=== PATIENT | male | born 1980 | race African-American/Black ===

== ENCOUNTER 2017-08-09 11:43 | Inpatient (IN) ==
[2017-08-09] MEDS ORDERED: ALBUTEROL 2.5 MG/3 ML NEB RESP TX PRN (17:54)
[2017-08-09] MEDS ORDERED: ONDANSETRON 4 MG/2 ML VIAL IV PRN (17:54)
[2017-08-09] MEDS ORDERED: GLUCAGON 1 MG VIAL IM PRN (17:54)
[2017-08-09] MEDS ORDERED: MORPHINE 2 MG/1 ML SYRINGE IV PRN (17:54)
[2017-08-09] MEDS: POTASSIUM CHLORIDE 20 MEQ TABLET PO SCH ×2 (18:40→21:44)
[2017-08-09] MEDS: LEVOFLOXACIN INJ 750 MG in PREMIX 1 EACH IV SCH (18:40)
[2017-08-09] MEDS: SODIUM CHLOR 0.9% KCL 40 MEQ 40 MEQ/1,000 ML BAG IV SCH (18:42)
[2017-08-09] MEDS: ALBUTEROL 2.5 MG/3 ML NEB RESP TX SCH ×2 (19:47→23:52)
[2017-08-09] MEDS: INSULIN GLARGINE 100 UNIT/ML SUBCUT SCH (21:44)
[2017-08-09] MEDS: guaiFENesin/DM ER 600-30 MG TABLET PO SCH (21:44)
[2017-08-09] MEDS: PIPERACILLIN/TAZOBACTAM 3,375 MG in SODIUM CHLORIDE 0.9% 100 ML IV SCH (21:44)
[2017-08-09] MEDS: INSULIN REGULAR 100 UNIT/ML SUBCUT SCH (21:45)
[2017-08-10] MEDS: VANCOMYCIN INJ 1,000 MG in SODIUM CHLORIDE 0.9% 250 ML IV SCH ×3 (01:24→23:54)
[2017-08-10] MEDS: POTASSIUM CHLORIDE 20 MEQ TABLET PO SCH (01:25)
[2017-08-10] MEDS: PIPERACILLIN/TAZOBACTAM 3,375 MG in SODIUM CHLORIDE 0.9% 100 ML IV SCH ×3 (04:16→20:53)
[2017-08-10] MEDS: SODIUM CHLOR 0.9% KCL 40 MEQ 40 MEQ/1,000 ML BAG IV SCH ×3 (04:17→20:52)
[2017-08-10 06:02] LABS: Basophils % 0.2 % (0.0-0.8); Eosinophils # 0.1 10*3/uL (0.0-0.87); Eosinophils % 0.7 % (0.00-10.9); Hemoglobin 9.6 GM/DL (14.0-18.0); Immature Granulocytes % 6.4 %; Immature Granulocytes Absolute 0.82 #; Lymphocytes # 1.4 10*3/uL (1.4-4.0); Lymphocytes % 10.9 % (21.2-54.2); Mean Corpuscular HGB Conc 35.6 GM/DL (32-36); Mean Corpuscular Hemoglobin 22 PG (27-34); Mean Corpuscular Volume 62.8 FL (87-102); Mean Platelet Volume 9.2 FL (9.6-12.0); Monocytes # 0.7 10*3/uL (0.11-0.8); Monocytes % 5.6 % (1.7-12.7); NRBC # 0.03 10*3/uL; Neutrophils # 9.7 10*3/uL (1.4-7.4); Neutrophils % 76.2 % (38.7-73.9); Platelet Count 288 T/CUMM (130-400); Red Cell Distribution Width 14.1 % (9.3-17.3); White Blood Count 12.8 T/CUMM (4-12)
[2017-08-10 06:26] LABS: Band Neutrophils 4 % (0-10); Eosinophils 1 % (0-10); Lymphocytes 10 % (20-55); Platelet Estimate Adequate; Segmented Neutrophils 80 % (50-85); Total Cells Counted 100
[2017-08-10 06:27] LABS: Giant Platelets Few; Hypochromasia 1+
[2017-08-10 06:28] LABS: Target Cells Few
[2017-08-10 06:32] LABS: Albumin 1.3 G/DL (3.4-5.0); Bilirubin,Total 1.3 MG/DL (0.2-1.0); Calcium 7.3 MG/DL (8.5-10.1); Osmolality,Calculated 280.8 MOS/KG (273-304); Potassium 3.2 MMOL/L (3.5-5.1)
[2017-08-10] MEDS: DEXTROSE 50% 25 GM/50 ML VIAL IV PRN (06:54)
[2017-08-10] MEDS: ALBUTEROL 2.5 MG/3 ML NEB RESP TX SCH ×3 (06:55→19:10)
[2017-08-10] MEDS ORDERED: POTASSIUM CHLORIDE 20 MEQ TABLET PO PRN (10:40)
[2017-08-10] MEDS: guaiFENesin/DM ER 600-30 MG TABLET PO SCH ×2 (12:24→20:52)
[2017-08-10] MEDS: INSULIN REGULAR 100 UNIT/ML SUBCUT SCH ×3 (12:24→20:53)
[2017-08-10] MEDS: PANTOPRAZOLE 40 MG TABLET PO SCH (12:24)
[2017-08-10 14:19] LABS: Apearance,Urine CLEAR (Clear); Bilirubin,Urine Negative (Negative); Blood, Urine Large mg/dL (Negative); Glucose,Urine (UA) Negative (Negative); Ketones,Urine 5 mg/dL (Negative); Mucus,Urine Occasional /LPF (Occasional); Nitrite,Urine Negative (Negative); Protein,Urine Negative; RBC,Urine 2 /HPF (0-4); Squamous Epithelial Cell,Urine Occasional /HPF (0-10); Urine Color Yellow (Yellow); WBC,Urine 3 /HPF (0-6)
[2017-08-10 15:42] LABS: HIV Antigen/Antibody Result Nonreactive (Nonreactive)
[2017-08-10] MEDS: LEVOFLOXACIN INJ 750 MG in PREMIX 1 EACH IV SCH ×2 (16:43→18:26)
[2017-08-10] MEDS: INSULIN GLARGINE 100 UNIT/ML SUBCUT SCH (20:55)
[2017-08-11] MEDS: ALBUTEROL 2.5 MG/3 ML NEB RESP TX SCH ×4 (01:04→18:56)
[2017-08-11] MEDS: PIPERACILLIN/TAZOBACTAM 3,375 MG in SODIUM CHLORIDE 0.9% 100 ML IV SCH ×3 (04:04→22:56)
[2017-08-11] MEDS: SODIUM CHLOR 0.9% KCL 40 MEQ 40 MEQ/1,000 ML BAG IV SCH (04:07)
[2017-08-11] MEDS: PANTOPRAZOLE 40 MG TABLET PO SCH ×2 (07:42→08:15)
[2017-08-11] MEDS: guaiFENesin/DM ER 600-30 MG TABLET PO SCH ×3 (07:42→21:31)
[2017-08-11] MEDS: INSULIN REGULAR 100 UNIT/ML SUBCUT SCH ×4 (07:43→21:30)
[2017-08-11 08:33] LABS: Basophils % 0.1 % (0.0-0.8); Eosinophils % 0.3 % (0.00-10.9); Hematocrit 26.3 VOL% (42.0-52.0); Immature Granulocytes % 5.7 %; Immature Granulocytes Absolute 0.71 #; Lymphocytes # 1.2 10*3/uL (1.4-4.0); Lymphocytes % 9.7 % (21.2-54.2); Mean Corpuscular HGB Conc 34.2 GM/DL (32-36); Mean Corpuscular Hemoglobin 22 PG (27-34); Mean Platelet Volume 8.8 FL (9.6-12.0); Monocytes # 0.7 10*3/uL (0.11-0.8); Monocytes % 5.4 % (1.7-12.7); NRBC # 0.02 10*3/uL; Neutrophils # 9.9 10*3/uL (1.4-7.4); Neutrophils % 78.8 % (38.7-73.9); Platelet Count 308 T/CUMM (130-400); Red Blood Count 4.11 MC/CUMM (3.8-5.5); Red Cell Distribution Width 13.5 % (9.3-17.3); White Blood Count 12.5 T/CUMM (4-12)
[2017-08-11 08:58] LABS: Calcium 6.9 MG/DL (8.5-10.1); Osmolality,Calculated 285.4 MOS/KG (273-304); Potassium 3.8 MMOL/L (3.5-5.1)
[2017-08-11 09:20] LABS: Band Neutrophils 6 % (0-10); Hypochromasia 1+; Lymphocytes 9 % (20-55); Myelocytes 2 %; Segmented Neutrophils 80 % (50-85); Total Cells Counted 100
[2017-08-11 09:21] LABS: Microcytosis 1+; Ovalocytes Slight
[2017-08-11] MEDS: VANCOMYCIN INJ 1,000 MG in SODIUM CHLORIDE 0.9% 250 ML IV SCH ×2 (11:33→21:28)
[2017-08-11] MEDS: INSULIN GLARGINE 100 UNIT/ML SUBCUT SCH (21:29)
[2017-08-12] MEDS: ALBUTEROL 2.5 MG/3 ML NEB RESP TX SCH ×4 (00:31→19:09)
[2017-08-12] MEDS: SODIUM CHLOR 0.9% KCL 40 MEQ 40 MEQ/1,000 ML BAG IV SCH ×3 (02:09→21:56)
[2017-08-12] MEDS: VANCOMYCIN INJ 1,000 MG in SODIUM CHLORIDE 0.9% 250 ML IV SCH ×3 (03:26→21:55)
[2017-08-12] MEDS: PIPERACILLIN/TAZOBACTAM 3,375 MG in SODIUM CHLORIDE 0.9% 100 ML IV SCH ×3 (06:17→23:23)
[2017-08-12 07:01] LABS: Basophils % 0.1 % (0.0-0.8); Eosinophils # 0.1 10*3/uL (0.0-0.87); Eosinophils % 0.6 % (0.00-10.9); Hematocrit 25.6 VOL% (42.0-52.0); Hemoglobin 8.5 GM/DL (14.0-18.0); Immature Granulocytes % 4.5 %; Immature Granulocytes Absolute 0.55 #; Lymphocytes # 1.4 10*3/uL (1.4-4.0); Lymphocytes % 11.4 % (21.2-54.2); Mean Corpuscular HGB Conc 33.2 GM/DL (32-36); Mean Corpuscular Hemoglobin 22 PG (27-34); Mean Corpuscular Volume 65.3 FL (87-102); Mean Platelet Volume 8.8 FL (9.6-12.0); Monocytes # 0.7 10*3/uL (0.11-0.8); Monocytes % 5.4 % (1.7-12.7); NRBC # 0.02 10*3/uL; Neutrophils # 9.6 10*3/uL (1.4-7.4); Platelet Count 391 T/CUMM (130-400); Red Blood Count 3.92 MC/CUMM (3.8-5.5); Red Cell Distribution Width 13.8 % (9.3-17.3); White Blood Count 12.3 T/CUMM (4-12)
[2017-08-12 07:28] LABS: Calcium 7.1 MG/DL (8.5-10.1); Osmolality,Calculated 282.1 MOS/KG (273-304); Potassium 3.7 MMOL/L (3.5-5.1)
[2017-08-12 07:32] LABS: Band Neutrophils 5 % (0-10); Hypochromasia 2+; Lymphocytes 5 % (20-55); Metamyelocytes 3 %; Microcytosis 1+; Myelocytes 4 %; Platelet Estimate Normal; Segmented Neutrophils 78 % (50-85); Target Cells Slight; Total Cells Counted 100
[2017-08-12] MEDS: PANTOPRAZOLE 40 MG TABLET PO SCH (08:44)
[2017-08-12] MEDS: guaiFENesin/DM ER 600-30 MG TABLET PO SCH ×2 (08:44→21:56)
[2017-08-12] MEDS: INSULIN REGULAR 100 UNIT/ML SUBCUT SCH ×4 (08:44→22:04)
[2017-08-12] MEDS: INSULIN GLARGINE 100 UNIT/ML SUBCUT SCH (21:57)
[2017-08-13] MEDS: ALBUTEROL 2.5 MG/3 ML NEB RESP TX SCH ×4 (00:32→20:01)
[2017-08-13] MEDS: VANCOMYCIN INJ 1,000 MG in SODIUM CHLORIDE 0.9% 250 ML IV SCH ×3 (03:58→21:09)
[2017-08-13] MEDS: PIPERACILLIN/TAZOBACTAM 3,375 MG in SODIUM CHLORIDE 0.9% 100 ML IV SCH ×3 (06:06→23:51)
[2017-08-13] MEDS: SODIUM CHLOR 0.9% KCL 40 MEQ 40 MEQ/1,000 ML BAG IV SCH ×2 (08:11→15:49)
[2017-08-13] MEDS: INSULIN REGULAR 100 UNIT/ML SUBCUT SCH ×4 (09:25→22:26)
[2017-08-13] MEDS: PANTOPRAZOLE 40 MG TABLET PO SCH (09:27)
[2017-08-13] MEDS: guaiFENesin/DM ER 600-30 MG TABLET PO SCH ×2 (09:27→21:09)
[2017-08-13 12:29] LABS: Calcium 6.8 MG/DL (8.5-10.1); Osmolality,Calculated 275.5 MOS/KG (273-304)
[2017-08-13 13:34] LABS: Hepatitis B Core Ab Result Negative (Negative); Hepatitis B Surface Ag Quant 0.16 Index; Hepatitis B Surface Ag Result Negative (Negative); Hepatitis C Virus Ab Quant 0.12 Index; Hepatitis C Virus Ab Result Negative (Negative)
[2017-08-13] MEDS: ENOXAPARIN 80 MG/0.8 ML SYRINGE SUBCUT SCH (15:49)
[2017-08-13] MEDS: INSULIN GLARGINE 100 UNIT/ML SUBCUT SCH (22:23)
[2017-08-14] MEDS: ENOXAPARIN 80 MG/0.8 ML SYRINGE SUBCUT SCH ×2 (03:05→15:18)
[2017-08-14] MEDS: VANCOMYCIN INJ 1,000 MG in SODIUM CHLORIDE 0.9% 250 ML IV SCH ×3 (03:06→20:10)
[2017-08-14 05:29] LABS: Basophils % 0.2 % (0.0-0.8); Eosinophils # 0.1 10*3/uL (0.0-0.87); Eosinophils % 0.4 % (0.00-10.9); Hematocrit 25.8 VOL% (42.0-52.0); Hemoglobin 8.1 GM/DL (14.0-18.0); Immature Granulocytes Absolute 0.36 #; Lymphocytes # 1.4 10*3/uL (1.4-4.0); Lymphocytes % 11.9 % (21.2-54.2); Mean Corpuscular HGB Conc 31.4 GM/DL (32-36); Mean Corpuscular Hemoglobin 21 PG (27-34); Mean Corpuscular Volume 68.3 FL (87-102); Monocytes # 0.6 10*3/uL (0.11-0.8); Monocytes % 4.9 % (1.7-12.7); Neutrophils # 9.5 10*3/uL (1.4-7.4); Neutrophils % 79.6 % (38.7-73.9); Platelet Count 503 T/CUMM (130-400); Red Blood Count 3.78 MC/CUMM (3.8-5.5); Red Cell Distribution Width 14.2 % (9.3-17.3); White Blood Count 11.9 T/CUMM (4-12)
[2017-08-14 05:52] LABS: Giant Platelets Few; Hypochromasia 1+; Lymphocytes 18 % (20-55); Microcytosis Slight; Nucleated Red Blood Cells 1 (0-5); Platelet Estimate Increased; Segmented Neutrophils 77 % (50-85); Total Cells Counted 100
[2017-08-14 06:07] LABS: Calcium 7.2 MG/DL (8.5-10.1); Osmolality,Calculated 275.4 MOS/KG (273-304)
[2017-08-14] MEDS: PIPERACILLIN/TAZOBACTAM 3,375 MG in SODIUM CHLORIDE 0.9% 100 ML IV SCH ×3 (06:16→23:57)
[2017-08-14] MEDS ORDERED: GLYCOPYRROLATE 0.4 MG/2 ML VIAL IM ONE (07:30)
[2017-08-14] MEDS ORDERED: PROMETHAZINE 25 MG/1 ML VIAL IM ONE (07:30)
[2017-08-14] MEDS ORDERED: MEPERIDINE 50 MG/1 ML VIAL IM ONE (07:30)
[2017-08-14] MEDS: DEXTROSE 50% 25 GM/50 ML VIAL IV PRN (07:31)
[2017-08-14] MEDS: INSULIN REGULAR 100 UNIT/ML SUBCUT SCH ×4 (07:32→20:25)
[2017-08-14] MEDS ORDERED: MIDAZOLAM 2 MG/2 ML VIAL ONE (07:33)
[2017-08-14] MEDS ORDERED: LIDOCAINE 2% 20 ML VIAL RESP TX ONE (08:00)
[2017-08-14] MEDS ORDERED: LIDOCAINE 1% 20 ML VIAL MISC INJ ONE (08:00)
[2017-08-14] MEDS ORDERED: LIDOCAINE 2% VISCOUS 100 ML BOTTLE SWISH/SPIT ONE (08:00)
[2017-08-14] MEDS ORDERED: MIDAZOLAM 2 MG/2 ML VIAL IV ONE (08:00)
[2017-08-14] MEDS: ALBUTEROL 2.5 MG/3 ML NEB RESP TX SCH ×4 (08:23→19:33)
[2017-08-14] MEDS: guaiFENesin/DM ER 600-30 MG TABLET PO SCH ×2 (10:43→20:10)
[2017-08-14] MEDS: PANTOPRAZOLE 40 MG TABLET PO SCH (10:43)
[2017-08-14] MEDS: INSULIN GLARGINE 100 UNIT/ML SUBCUT SCH (20:22)
[2017-08-15] MEDS: ALBUTEROL 2.5 MG/3 ML NEB RESP TX SCH ×4 (00:20→19:48)
[2017-08-15] MEDS: ENOXAPARIN 80 MG/0.8 ML SYRINGE SUBCUT SCH ×2 (03:37→15:45)
[2017-08-15] MEDS: VANCOMYCIN INJ 1,000 MG in SODIUM CHLORIDE 0.9% 250 ML IV SCH ×2 (03:38→12:38)
[2017-08-15] MEDS: PIPERACILLIN/TAZOBACTAM 3,375 MG in SODIUM CHLORIDE 0.9% 100 ML IV SCH ×2 (06:35→18:27)
[2017-08-15] MEDS: INSULIN REGULAR 100 UNIT/ML SUBCUT SCH ×4 (08:01→21:34)
[2017-08-15] MEDS: guaiFENesin/DM ER 600-30 MG TABLET PO SCH ×2 (08:30→21:33)
[2017-08-15] MEDS: PANTOPRAZOLE 40 MG TABLET PO SCH (08:30)
[2017-08-15 15:05] LABS: Myeloperoxidase Antibody < 0.2 U
[2017-08-15] MEDS: VANCOMYCIN INJ 1,250 MG in SODIUM CHLORIDE 0.9% 250 ML IV SCH ×2 (15:40→22:57)
[2017-08-15] MEDS: INSULIN GLARGINE 100 UNIT/ML SUBCUT SCH (21:35)
[2017-08-16] MEDS: ALBUTEROL 2.5 MG/3 ML NEB RESP TX SCH ×5 (00:54→23:52)
[2017-08-16] MEDS: PIPERACILLIN/TAZOBACTAM 3,375 MG in SODIUM CHLORIDE 0.9% 100 ML IV SCH ×2 (01:26→08:33)
[2017-08-16] MEDS: ENOXAPARIN 80 MG/0.8 ML SYRINGE SUBCUT SCH ×2 (02:39→15:35)
[2017-08-16] MEDS: VANCOMYCIN INJ 1,250 MG in SODIUM CHLORIDE 0.9% 250 ML IV SCH ×3 (07:09→23:10)
[2017-08-16] MEDS: INSULIN REGULAR 100 UNIT/ML SUBCUT SCH ×4 (08:31→21:10)
[2017-08-16] MEDS: guaiFENesin/DM ER 600-30 MG TABLET PO SCH ×2 (08:33→21:08)
[2017-08-16] MEDS: PANTOPRAZOLE 40 MG TABLET PO SCH (08:33)
[2017-08-16 14:48] LABS: Basophils % 0.2 % (0.0-0.8); Eosinophils # 0.1 10*3/uL (0.0-0.87); Eosinophils % 0.7 % (0.00-10.9); Hematocrit 25.2 VOL% (42.0-52.0); Immature Granulocytes % 3.1 %; Immature Granulocytes Absolute 0.31 #; Lymphocytes # 1.5 10*3/uL (1.4-4.0); Lymphocytes % 15.3 % (21.2-54.2); Mean Corpuscular HGB Conc 31.7 GM/DL (32-36); Mean Corpuscular Hemoglobin 22 PG (27-34); Mean Corpuscular Volume 68.9 FL (87-102); Mean Platelet Volume 8.7 FL (9.6-12.0); Monocytes # 0.6 10*3/uL (0.11-0.8); Monocytes % 5.9 % (1.7-12.7); Neutrophils # 7.5 10*3/uL (1.4-7.4); Neutrophils % 74.8 % (38.7-73.9); Platelet Count 793 T/CUMM (130-400); Red Blood Count 3.66 MC/CUMM (3.8-5.5); Red Cell Distribution Width 14.2 % (9.3-17.3)
[2017-08-16 15:21] LABS: Calcium 7.6 MG/DL (8.5-10.1); Osmolality,Calculated 272.8 MOS/KG (273-304); Potassium 4.2 MMOL/L (3.5-5.1)
[2017-08-16 16:39] LABS: Lymphocytes 15 % (20-55); Myelocytes 1 %; Platelet Estimate Increased; Segmented Neutrophils 79 % (50-85); Total Cells Counted 100
[2017-08-16] MEDS: APIXABAN 5 MG TABLET PO SCH (21:08)
[2017-08-16] MEDS: INSULIN GLARGINE 100 UNIT/ML SUBCUT SCH (21:09)
[2017-08-17] MEDS: VANCOMYCIN INJ 1,250 MG in SODIUM CHLORIDE 0.9% 250 ML IV SCH ×3 (06:32→22:01)
[2017-08-17] MEDS: ALBUTEROL 2.5 MG/3 ML NEB RESP TX SCH ×3 (07:59→20:13)
[2017-08-17] MEDS: INSULIN REGULAR 100 UNIT/ML SUBCUT SCH ×4 (08:12→22:00)
[2017-08-17] MEDS: guaiFENesin/DM ER 600-30 MG TABLET PO SCH ×2 (09:13→21:13)
[2017-08-17] MEDS: PANTOPRAZOLE 40 MG TABLET PO SCH (09:13)
[2017-08-17] MEDS: APIXABAN 5 MG TABLET PO SCH ×2 (09:13→21:12)
[2017-08-17] MEDS ORDERED: BISACODYL 5 MG TABLET PO ONE (18:23)
[2017-08-17] MEDS: INSULIN GLARGINE 100 UNIT/ML SUBCUT SCH (21:12)
[2017-08-18] MEDS: ALBUTEROL 2.5 MG/3 ML NEB RESP TX SCH ×4 (00:54→19:42)
[2017-08-18] MEDS: VANCOMYCIN INJ 1,250 MG in SODIUM CHLORIDE 0.9% 250 ML IV SCH ×2 (06:01→16:24)
[2017-08-18] MEDS: INSULIN REGULAR 100 UNIT/ML SUBCUT SCH ×4 (07:26→22:20)
[2017-08-18] MEDS: APIXABAN 5 MG TABLET PO SCH ×2 (08:46→22:19)
[2017-08-18] MEDS: PANTOPRAZOLE 40 MG TABLET PO SCH (08:46)
[2017-08-18] MEDS: BISACODYL 5 MG TABLET PO PRN (08:47)
[2017-08-18] MEDS: guaiFENesin/DM ER 600-30 MG TABLET PO SCH ×2 (08:47→22:18)
[2017-08-18] MEDS ORDERED: LACTULOSE 20 GM/30 ML UDCUP PO PRN (08:50)
[2017-08-18 10:32] LABS: Basophils % 0.4 % (0.0-0.8); Eosinophils # 0.1 10*3/uL (0.0-0.87); Eosinophils % 0.8 % (0.00-10.9); Hematocrit 27.6 VOL% (42.0-52.0); Hemoglobin 8.5 GM/DL (14.0-18.0); Immature Granulocytes % 3.8 %; Immature Granulocytes Absolute 0.31 #; Lymphocytes # 1.2 10*3/uL (1.4-4.0); Lymphocytes % 14.8 % (21.2-54.2); Mean Corpuscular HGB Conc 30.8 GM/DL (32-36); Mean Corpuscular Hemoglobin 22 PG (27-34); Mean Corpuscular Volume 69.7 FL (87-102); Mean Platelet Volume 8.4 FL (9.6-12.0); Monocytes # 0.6 10*3/uL (0.11-0.8); Monocytes % 7.5 % (1.7-12.7); Neutrophils % 72.7 % (38.7-73.9); Platelet Count 999 T/CUMM (130-400); Red Blood Count 3.96 MC/CUMM (3.8-5.5); Red Cell Distribution Width 13.9 % (9.3-17.3); White Blood Count 8.2 T/CUMM (4-12)
[2017-08-18 10:56] LABS: Calcium 7.9 MG/DL (8.5-10.1); Osmolality,Calculated 273.8 MOS/KG (273-304); Potassium 4.3 MMOL/L (3.5-5.1)
[2017-08-18 11:35] LABS: INR 1.2; PT Patient Result 12.4 SECS; Partial Thromboplastin Time 30.3 SECS (0-40)
[2017-08-18] MEDS: INSULIN GLARGINE 100 UNIT/ML SUBCUT SCH (22:19)
[2017-08-19] MEDS: ALBUTEROL 2.5 MG/3 ML NEB RESP TX SCH ×4 (00:29→19:18)
[2017-08-19] MEDS: VANCOMYCIN INJ 1,500 MG in SODIUM CHLORIDE 0.9% 500 ML IV SCH ×4 (00:40→22:01)
[2017-08-19] MEDS: guaiFENesin/DM ER 600-30 MG TABLET PO SCH ×2 (09:06→22:03)
[2017-08-19] MEDS: APIXABAN 5 MG TABLET PO SCH (09:07)
[2017-08-19] MEDS: PANTOPRAZOLE 40 MG TABLET PO SCH (09:07)
[2017-08-19] MEDS: INSULIN REGULAR 100 UNIT/ML SUBCUT SCH ×4 (09:08→22:04)
[2017-08-19] MEDS: INSULIN GLARGINE 100 UNIT/ML SUBCUT SCH (22:02)
[2017-08-19] MEDS: APIXABAN 2.5 MG TABLET PO SCH (22:05)
[2017-08-20] MEDS: ALBUTEROL 2.5 MG/3 ML NEB RESP TX SCH ×4 (00:45→19:30)
[2017-08-20] MEDS: VANCOMYCIN INJ 1,500 MG in SODIUM CHLORIDE 0.9% 500 ML IV SCH ×2 (05:52→17:49)
[2017-08-20] MEDS: INSULIN REGULAR 100 UNIT/ML SUBCUT SCH ×4 (11:23→21:08)
[2017-08-20] MEDS ORDERED: ceFAZolin 1,000 MG VIAL ONE (12:32)
[2017-08-20] MEDS ORDERED: BUPIVACAINE 0.25% 50 ML VIAL ONE (12:40)
[2017-08-20] MEDS ORDERED: MIDAZOLAM 2 MG/2 ML VIAL ONE (13:10)
[2017-08-20] MEDS ORDERED: fentaNYL 100 MCG/2 ML VIAL ONE (13:10)
[2017-08-20] MEDS ORDERED: PROPOFOL 200 MG/20 ML VIAL IV ONE (13:10)
[2017-08-20] MEDS: PANTOPRAZOLE 40 MG TABLET PO SCH (14:16)
[2017-08-20] MEDS: APIXABAN 2.5 MG TABLET PO SCH ×2 (14:16→21:08)
[2017-08-20] MEDS: guaiFENesin/DM ER 600-30 MG TABLET PO SCH ×2 (14:16→21:07)
[2017-08-20] MEDS: BISACODYL 5 MG TABLET PO PRN (14:21)
[2017-08-20] MEDS: INSULIN GLARGINE 100 UNIT/ML SUBCUT SCH (21:08)
[2017-08-21] MEDS: ALBUTEROL 2.5 MG/3 ML NEB RESP TX SCH ×4 (00:55→19:36)
[2017-08-21] MEDS: VANCOMYCIN INJ 1,500 MG in SODIUM CHLORIDE 0.9% 500 ML IV SCH ×2 (06:08→18:16)
[2017-08-21] MEDS: guaiFENesin/DM ER 600-30 MG TABLET PO SCH ×2 (08:28→20:29)
[2017-08-21] MEDS: INSULIN REGULAR 100 UNIT/ML SUBCUT SCH ×4 (08:28→20:30)
[2017-08-21] MEDS: PANTOPRAZOLE 40 MG TABLET PO SCH (08:28)
[2017-08-21] MEDS: APIXABAN 2.5 MG TABLET PO SCH ×2 (08:28→20:29)
[2017-08-21 13:09] LABS: Basophils % 0.4 % (0.0-0.8); Eosinophils # 0.2 10*3/uL (0.0-0.87); Eosinophils % 1.7 % (0.00-10.9); Hematocrit 30.7 VOL% (42.0-52.0); Hemoglobin 9.7 GM/DL (14.0-18.0); Immature Granulocytes % 5.3 %; Immature Granulocytes Absolute 0.49 #; Lymphocytes # 1.6 10*3/uL (1.4-4.0); Lymphocytes % 17.5 % (21.2-54.2); Mean Corpuscular HGB Conc 31.6 GM/DL (32-36); Mean Corpuscular Hemoglobin 22 PG (27-34); Mean Corpuscular Volume 69.3 FL (87-102); Mean Platelet Volume 8.4 FL (9.6-12.0); Monocytes # 0.7 10*3/uL (0.11-0.8); Monocytes % 7.9 % (1.7-12.7); Neutrophils # 6.2 10*3/uL (1.4-7.4); Neutrophils % 67.2 % (38.7-73.9); Platelet Count 940 T/CUMM (130-400); Red Blood Count 4.43 MC/CUMM (3.8-5.5); Red Cell Distribution Width 14.9 % (9.3-17.3); White Blood Count 9.3 T/CUMM (4-12)
[2017-08-21 13:49] LABS: Albumin 2.4 G/DL (3.4-5.0); Bilirubin,Total 0.4 MG/DL (0.2-1.0); Calcium 8.4 MG/DL (8.5-10.1); Osmolality,Calculated 274.7 MOS/KG (273-304); Potassium 4.2 MMOL/L (3.5-5.1); Total Protein 7.8 G/DL (6.4-8.3)
[2017-08-21] MEDS: POLYMYXIN/TRIMETHOPRIM OPH SOL 10 ML BOTTLE RIGHT EYE SCH ×3 (18:13→20:30)
[2017-08-21] MEDS: INSULIN GLARGINE 100 UNIT/ML SUBCUT SCH (20:30)
[2017-08-21 22:52] LABS: Basophils % 0.3 % (0.0-0.8); Eosinophils # 0.2 10*3/uL (0.0-0.87); Eosinophils % 2.1 % (0.00-10.9); Hematocrit 25.4 VOL% (42.0-52.0); Hemoglobin 8.1 GM/DL (14.0-18.0); Immature Granulocytes % 5.1 %; Immature Granulocytes Absolute 0.41 #; Lymphocytes # 1.8 10*3/uL (1.4-4.0); Lymphocytes % 22.7 % (21.2-54.2); Mean Corpuscular HGB Conc 31.9 GM/DL (32-36); Mean Corpuscular Hemoglobin 22 PG (27-34); Mean Corpuscular Volume 68.8 FL (87-102); Mean Platelet Volume 8.1 FL (9.6-12.0); Monocytes # 0.9 10*3/uL (0.11-0.8); Monocytes % 10.6 % (1.7-12.7); Neutrophils # 4.7 10*3/uL (1.4-7.4); Neutrophils % 59.2 % (38.7-73.9); Platelet Count 742 T/CUMM (130-400); Red Blood Count 3.69 MC/CUMM (3.8-5.5); Red Cell Distribution Width 14.6 % (9.3-17.3)
[2017-08-21 23:41] LABS: Immunoglobulin A 164 MG/DL (70-400); Immunoglobulin G 2440 MG/DL (700-1600); Immunoglobulin M 36 MG/DL (40-230)
[2017-08-22] MEDS: POLYMYXIN/TRIMETHOPRIM OPH SOL 10 ML BOTTLE RIGHT EYE SCH ×9 (00:21→23:11)
[2017-08-22] MEDS: ALBUTEROL 2.5 MG/3 ML NEB RESP TX SCH ×4 (00:32→19:29)
[2017-08-22 00:52] LABS: Atypical Lymphocytes 1+; Band Neutrophils 3 % (0-10); Eosinophils 3 % (0-10); Lymphocytes 30 % (20-55); Segmented Neutrophils 55 % (50-85); Total Cells Counted 100
[2017-08-22 00:53] LABS: Microcytosis 2+; Platelet Estimate Increased
[2017-08-22] MEDS: VANCOMYCIN INJ 1,500 MG in SODIUM CHLORIDE 0.9% 500 ML IV SCH ×2 (06:01→18:37)
[2017-08-22 06:06] LABS: Immunoglobulin A (Chem) 164 MG/DL (70-400); Immunoglobulin G (Chem) 2440 MG/DL (700-1600); Immunoglobulin M (Chem) 36 MG/DL (40-230)
[2017-08-22 06:48] LABS: Basophils % 0.6 % (0.0-0.8); Eosinophils # 0.1 10*3/uL (0.0-0.87); Hematocrit 28.1 VOL% (42.0-52.0); Hemoglobin 8.5 GM/DL (14.0-18.0); Immature Granulocytes % 4.5 %; Immature Granulocytes Absolute 0.32 #; Lymphocytes # 1.4 10*3/uL (1.4-4.0); Lymphocytes % 19.1 % (21.2-54.2); Mean Corpuscular HGB Conc 30.2 GM/DL (32-36); Mean Corpuscular Hemoglobin 21 PG (27-34); Mean Corpuscular Volume 70.3 FL (87-102); Mean Platelet Volume 8.1 FL (9.6-12.0); Monocytes # 0.6 10*3/uL (0.11-0.8); Neutrophils # 4.6 10*3/uL (1.4-7.4); Neutrophils % 64.8 % (38.7-73.9); Platelet Count 767 T/CUMM (130-400); Red Cell Distribution Width 14.6 % (9.3-17.3); White Blood Count 7.1 T/CUMM (4-12)
[2017-08-22 07:15] LABS: Bilirubin,Total 0.4 MG/DL (0.2-1.0); Calcium 8.2 MG/DL (8.5-10.1); Osmolality,Calculated 274.5 MOS/KG (273-304); Potassium 4.1 MMOL/L (3.5-5.1); Total Protein 6.9 G/DL (6.4-8.3)
[2017-08-22] MEDS: INSULIN REGULAR 100 UNIT/ML SUBCUT SCH ×4 (07:59→21:52)
[2017-08-22 08:49] LABS: Albumin (SPE) 2.2 G/DL (3.2-5.3); Albumin (SPE) Rel % 32.6 %; Alpha 1 (SPE) 0.4 G/DL (0.1-0.4); Alpha 1 (SPE) Rel % 6.2 %; Alpha 2 (SPE) 0.8 G/DL (0.4-1.0); Alpha 2 (SPE) Rel % 12.2 %; Beta (SPE) 0.8 G/DL (0.5-1.1); Beta (SPE) Rel % 12.6 %; Gamma (SPE) 2.4 G/DL (0.7-1.7); Gamma (SPE) Rel % 36.4 %; Total Protein (Chem) 6.7 G/DL (6.4-8.3)
[2017-08-22] MEDS: PANTOPRAZOLE 40 MG TABLET PO SCH (09:35)
[2017-08-22] MEDS: APIXABAN 2.5 MG TABLET PO SCH ×2 (09:35→21:52)
[2017-08-22] MEDS: guaiFENesin/DM ER 600-30 MG TABLET PO SCH ×2 (09:35→21:51)
[2017-08-22] MEDS: INSULIN GLARGINE 100 UNIT/ML SUBCUT SCH (21:52)
[2017-08-23] MEDS: ALBUTEROL 2.5 MG/3 ML NEB RESP TX SCH ×4 (01:02→19:42)
[2017-08-23] MEDS: POLYMYXIN/TRIMETHOPRIM OPH SOL 10 ML BOTTLE RIGHT EYE SCH ×8 (02:11→23:12)
[2017-08-23] MEDS: VANCOMYCIN INJ 1,500 MG in SODIUM CHLORIDE 0.9% 500 ML IV SCH ×3 (02:39→18:39)
[2017-08-23 07:05] LABS: % Iron Saturation 15.4 % (18-50)
[2017-08-23] MEDS: APIXABAN 2.5 MG TABLET PO SCH ×2 (09:22→21:35)
[2017-08-23] MEDS: INSULIN REGULAR 100 UNIT/ML SUBCUT SCH ×4 (09:22→21:35)
[2017-08-23] MEDS: PANTOPRAZOLE 40 MG TABLET PO SCH (09:22)
[2017-08-23] MEDS: guaiFENesin/DM ER 600-30 MG TABLET PO SCH ×2 (09:22→21:35)
[2017-08-23 16:21] LABS: INR 1.4
[2017-08-23] MEDS ORDERED: IMMUNE GLOBULIN IV SCH (16:30)
[2017-08-23] MEDS: IMMUNE GLOBULIN 10% 20 GM, IMMUNE GLOBULIN 10% 10 GM in PREMIX 1 EACH IV SCH (17:03)
[2017-08-23] MEDS: INSULIN GLARGINE 100 UNIT/ML SUBCUT SCH (21:36)
[2017-08-24] MEDS: ALBUTEROL 2.5 MG/3 ML NEB RESP TX SCH ×4 (01:00→20:06)
[2017-08-24] MEDS: VANCOMYCIN INJ 1,500 MG in SODIUM CHLORIDE 0.9% 500 ML IV SCH ×3 (01:52→17:34)
[2017-08-24] MEDS: POLYMYXIN/TRIMETHOPRIM OPH SOL 10 ML BOTTLE RIGHT EYE SCH ×8 (01:53→23:17)
[2017-08-24 06:33] LABS: Basophils % 0.3 % (0.0-0.8); Eosinophils # 0.2 10*3/uL (0.0-0.87); Eosinophils % 3.6 % (0.00-10.9); Hematocrit 26.5 VOL% (42.0-52.0); Hemoglobin 8.1 GM/DL (14.0-18.0); Immature Granulocytes % 2.8 %; Immature Granulocytes Absolute 0.17 #; Lymphocytes % 16.6 % (21.2-54.2); Mean Corpuscular HGB Conc 30.6 GM/DL (32-36); Mean Corpuscular Hemoglobin 21 PG (27-34); Mean Corpuscular Volume 69.4 FL (87-102); Mean Platelet Volume 8.4 FL (9.6-12.0); Monocytes # 0.6 10*3/uL (0.11-0.8); Monocytes % 8.9 % (1.7-12.7); Neutrophils # 4.2 10*3/uL (1.4-7.4); Neutrophils % 67.8 % (38.7-73.9); Platelet Count 489 T/CUMM (130-400); Red Blood Count 3.82 MC/CUMM (3.8-5.5); Red Cell Distribution Width 14.6 % (9.3-17.3); White Blood Count 6.2 T/CUMM (4-12)
[2017-08-24 07:05] LABS: Bilirubin,Total 0.6 MG/DL (0.2-1.0); Calcium 7.9 MG/DL (8.5-10.1); Osmolality,Calculated 276.7 MOS/KG (273-304); Potassium 4.1 MMOL/L (3.5-5.1); Total Protein 7.3 G/DL (6.4-8.3)
[2017-08-24] MEDS: INSULIN REGULAR 100 UNIT/ML SUBCUT SCH ×4 (08:43→21:21)
[2017-08-24] MEDS: PANTOPRAZOLE 40 MG TABLET PO SCH (08:44)
[2017-08-24] MEDS: APIXABAN 2.5 MG TABLET PO SCH ×2 (08:44→21:21)
[2017-08-24] MEDS: guaiFENesin/DM ER 600-30 MG TABLET PO SCH ×2 (08:44→21:21)
[2017-08-24 16:00] LABS: Phospholipid Ab IgM, S < 9.4 MPL
[2017-08-24] MEDS: IMMUNE GLOBULIN 10% 20 GM, IMMUNE GLOBULIN 10% 10 GM in PREMIX 1 EACH IV SCH (17:34)
[2017-08-24] MEDS: INSULIN GLARGINE 100 UNIT/ML SUBCUT SCH (21:21)
[2017-08-25] MEDS: ALBUTEROL 2.5 MG/3 ML NEB RESP TX SCH ×4 (02:02→18:59)
[2017-08-25] MEDS: POLYMYXIN/TRIMETHOPRIM OPH SOL 10 ML BOTTLE RIGHT EYE SCH ×8 (06:00→23:33)
[2017-08-25] MEDS: VANCOMYCIN INJ 1,500 MG in SODIUM CHLORIDE 0.9% 500 ML IV SCH ×3 (06:00→18:36)
[2017-08-25 06:56] LABS: Basophils % 0.2 % (0.0-0.8); Eosinophils # 0.2 10*3/uL (0.0-0.87); Eosinophils % 3.3 % (0.00-10.9); Hematocrit 25.7 VOL% (42.0-52.0); Hemoglobin 8.2 GM/DL (14.0-18.0); Immature Granulocytes Absolute 0.12 #; Lymphocytes # 1.1 10*3/uL (1.4-4.0); Lymphocytes % 18.6 % (21.2-54.2); Mean Corpuscular HGB Conc 31.9 GM/DL (32-36); Mean Corpuscular Hemoglobin 22 PG (27-34); Mean Corpuscular Volume 68.4 FL (87-102); Mean Platelet Volume 8.9 FL (9.6-12.0); Monocytes # 0.6 10*3/uL (0.11-0.8); Monocytes % 10.5 % (1.7-12.7); Neutrophils % 65.4 % (38.7-73.9); Platelet Count 427 T/CUMM (130-400); Red Blood Count 3.76 MC/CUMM (3.8-5.5); Red Cell Distribution Width 14.7 % (9.3-17.3); White Blood Count 6.1 T/CUMM (4-12)
[2017-08-25 07:21] LABS: Albumin 1.9 G/DL (3.4-5.0); Bilirubin,Total 0.5 MG/DL (0.2-1.0); Calcium 8.3 MG/DL (8.5-10.1); Osmolality,Calculated 273.7 MOS/KG (273-304)
[2017-08-25] MEDS: INSULIN REGULAR 100 UNIT/ML SUBCUT SCH ×4 (08:49→22:01)
[2017-08-25] MEDS: APIXABAN 2.5 MG TABLET PO SCH ×2 (09:15→21:43)
[2017-08-25] MEDS: guaiFENesin/DM ER 600-30 MG TABLET PO SCH ×2 (09:15→21:43)
[2017-08-25] MEDS: PANTOPRAZOLE 40 MG TABLET PO SCH (09:15)
[2017-08-25] MEDS: IMMUNE GLOBULIN 10% 20 GM, IMMUNE GLOBULIN 10% 10 GM in PREMIX 1 EACH IV SCH (16:36)
[2017-08-25] MEDS: VANCOMYCIN INJ 1,250 MG in SODIUM CHLORIDE 0.9% 250 ML IV SCH (21:43)
[2017-08-25] MEDS: INSULIN GLARGINE 100 UNIT/ML SUBCUT SCH (22:01)
[2017-08-26] MEDS: ALBUTEROL 2.5 MG/3 ML NEB RESP TX SCH ×4 (00:40→19:09)
[2017-08-26] MEDS: POLYMYXIN/TRIMETHOPRIM OPH SOL 10 ML BOTTLE RIGHT EYE SCH ×8 (03:29→22:26)
[2017-08-26] MEDS: VANCOMYCIN INJ 1,250 MG in SODIUM CHLORIDE 0.9% 250 ML IV SCH ×3 (05:28→22:17)
[2017-08-26 06:05] LABS: Basophils % 0.3 % (0.0-0.8); Eosinophils # 0.2 10*3/uL (0.0-0.87); Eosinophils % 3.6 % (0.00-10.9); Hematocrit 26.1 VOL% (42.0-52.0); Immature Granulocytes % 1.7 %; Lymphocytes # 1.2 10*3/uL (1.4-4.0); Lymphocytes % 20.9 % (21.2-54.2); Mean Corpuscular HGB Conc 30.7 GM/DL (32-36); Mean Corpuscular Hemoglobin 21 PG (27-34); Mean Corpuscular Volume 69.4 FL (87-102); Monocytes # 0.8 10*3/uL (0.11-0.8); Monocytes % 13.3 % (1.7-12.7); Neutrophils # 3.5 10*3/uL (1.4-7.4); Neutrophils % 60.2 % (38.7-73.9); Platelet Count 368 T/CUMM (130-400); Red Blood Count 3.76 MC/CUMM (3.8-5.5); Red Cell Distribution Width 14.6 % (9.3-17.3); White Blood Count 5.8 T/CUMM (4-12)
[2017-08-26 06:38] LABS: Alanine Aminotransferase < 9 U/L (16-61); Albumin 1.9 G/DL (3.4-5.0); Alkaline Phosphatase 55 U/L (45-117); Aspartate Amino Transferase 16 U/L (0-37); Blood Urea Nitrogen 6 MG/DL (7-18); Calcium 8.4 MG/DL (8.5-10.1); Glucose 104 MG/DL (74-106); Osmolality,Calculated 272.7 MOS/KG (273-304); Potassium 3.8 MMOL/L (3.5-5.1); Sodium 138 MMOL/L (136-145); Total Protein 8.1 G/DL (6.4-8.3)
[2017-08-26] MEDS: INSULIN REGULAR 100 UNIT/ML SUBCUT SCH ×4 (08:29→21:29)
[2017-08-26] MEDS: APIXABAN 2.5 MG TABLET PO SCH ×2 (08:29→21:29)
[2017-08-26] MEDS: PANTOPRAZOLE 40 MG TABLET PO SCH (08:30)
[2017-08-26] MEDS: guaiFENesin/DM ER 600-30 MG TABLET PO SCH ×2 (08:30→21:29)
[2017-08-26] MEDS: IMMUNE GLOBULIN 10% 20 GM, IMMUNE GLOBULIN 10% 10 GM in PREMIX 1 EACH IV SCH (17:03)
[2017-08-26] MEDS: INSULIN GLARGINE 100 UNIT/ML SUBCUT SCH (21:29)
[2017-08-27] MEDS: ALBUTEROL 2.5 MG/3 ML NEB RESP TX SCH ×4 (01:06→18:40)
[2017-08-27] MEDS: POLYMYXIN/TRIMETHOPRIM OPH SOL 10 ML BOTTLE RIGHT EYE SCH ×8 (02:14→23:04)
[2017-08-27] MEDS: VANCOMYCIN INJ 1,250 MG in SODIUM CHLORIDE 0.9% 250 ML IV SCH ×3 (05:30→21:13)
[2017-08-27 06:03] LABS: Basophils % 0.4 % (0.0-0.8); Eosinophils # 0.2 10*3/uL (0.0-0.87); Eosinophils % 3.5 % (0.00-10.9); Hematocrit 26.7 VOL% (42.0-52.0); Hemoglobin 8.5 GM/DL (14.0-18.0); Immature Granulocytes % 1.5 %; Immature Granulocytes Absolute 0.08 #; Lymphocytes % 18.3 % (21.2-54.2); Mean Corpuscular HGB Conc 31.8 GM/DL (32-36); Mean Corpuscular Hemoglobin 22 PG (27-34); Mean Corpuscular Volume 67.9 FL (87-102); Monocytes # 0.6 10*3/uL (0.11-0.8); Monocytes % 11.8 % (1.7-12.7); Neutrophils # 3.5 10*3/uL (1.4-7.4); Neutrophils % 64.5 % (38.7-73.9); Platelet Count 365 T/CUMM (130-400); Red Blood Count 3.93 MC/CUMM (3.8-5.5); Red Cell Distribution Width 14.6 % (9.3-17.3); White Blood Count 5.4 T/CUMM (4-12)
[2017-08-27 06:35] LABS: Albumin 2.1 G/DL (3.4-5.0); Bilirubin,Total 0.4 MG/DL (0.2-1.0); Calcium 8.2 MG/DL (8.5-10.1); Total Protein 8.7 G/DL (6.4-8.3)
[2017-08-27] MEDS: PANTOPRAZOLE 40 MG TABLET PO SCH (09:45)
[2017-08-27] MEDS: guaiFENesin/DM ER 600-30 MG TABLET PO SCH ×2 (09:45→21:14)
[2017-08-27] MEDS: APIXABAN 2.5 MG TABLET PO SCH ×2 (09:45→21:14)
[2017-08-27] MEDS: INSULIN REGULAR 100 UNIT/ML SUBCUT SCH ×4 (10:22→21:16)
[2017-08-27 11:01] LABS: Hemoglobin A1 (Alkaline) 97.9 % (96.5-98.5); Hemoglobin A2 (Alkaline) 2.1 % (1.5-3.5)
[2017-08-27 11:38] LABS: PT Mix 1:1 (Mayo Reflex) 12.6 sec; Thrombin Time (Bovine), P 19 sec (15 - 23)
[2017-08-27] MEDS ORDERED: GLUCAGON 1 MG VIAL IM PRN (16:24)
[2017-08-27] MEDS ORDERED: DEXTROSE 50% 25 GM/50 ML VIAL IV PRN (16:24)
[2017-08-27] MEDS: INSULIN GLARGINE 100 UNIT/ML SUBCUT SCH ×2 (17:34→21:15)
[2017-08-27] MEDS: IMMUNE GLOBULIN 10% 20 GM, IMMUNE GLOBULIN 10% 10 GM in PREMIX 1 EACH IV SCH (18:17)
[2017-08-28] MEDS: ALBUTEROL 2.5 MG/3 ML NEB RESP TX SCH ×4 (00:20→19:40)
[2017-08-28] MEDS: POLYMYXIN/TRIMETHOPRIM OPH SOL 10 ML BOTTLE RIGHT EYE SCH ×7 (01:55→20:51)
[2017-08-28] MEDS: VANCOMYCIN INJ 1,250 MG in SODIUM CHLORIDE 0.9% 250 ML IV SCH ×3 (04:42→20:51)
[2017-08-28] MEDS: guaiFENesin/DM ER 600-30 MG TABLET PO SCH ×2 (09:12→20:50)
[2017-08-28] MEDS: INSULIN REGULAR 100 UNIT/ML SUBCUT SCH ×4 (09:12→22:03)
[2017-08-28] MEDS: APIXABAN 2.5 MG TABLET PO SCH ×2 (09:12→20:50)
[2017-08-28] MEDS: PANTOPRAZOLE 40 MG TABLET PO SCH (09:12)
[2017-08-28] MEDS: INSULIN GLARGINE 100 UNIT/ML SUBCUT SCH (20:52)
[2017-08-29] MEDS: ALBUTEROL 2.5 MG/3 ML NEB RESP TX SCH ×2 (00:22→07:14)
[2017-08-29] MEDS: POLYMYXIN/TRIMETHOPRIM OPH SOL 10 ML BOTTLE RIGHT EYE SCH ×9 (00:45→21:42)
[2017-08-29] MEDS: VANCOMYCIN INJ 1,250 MG in SODIUM CHLORIDE 0.9% 250 ML IV SCH ×3 (04:54→21:44)
[2017-08-29] MEDS: INSULIN REGULAR 100 UNIT/ML SUBCUT SCH ×4 (08:19→21:45)
[2017-08-29] MEDS: guaiFENesin/DM ER 600-30 MG TABLET PO SCH ×2 (08:20→21:42)
[2017-08-29] MEDS: APIXABAN 2.5 MG TABLET PO SCH ×2 (08:20→21:42)
[2017-08-29] MEDS: PANTOPRAZOLE 40 MG TABLET PO SCH (08:20)
[2017-08-29] MEDS: INSULIN GLARGINE 100 UNIT/ML SUBCUT SCH (21:45)
[2017-08-30] MEDS: POLYMYXIN/TRIMETHOPRIM OPH SOL 10 ML BOTTLE RIGHT EYE SCH ×9 (00:06→23:37)
[2017-08-30] MEDS: VANCOMYCIN INJ 1,250 MG in SODIUM CHLORIDE 0.9% 250 ML IV SCH ×3 (04:27→21:26)
[2017-08-30] MEDS: INSULIN REGULAR 100 UNIT/ML SUBCUT SCH ×4 (07:51→21:32)
[2017-08-30] MEDS: PANTOPRAZOLE 40 MG TABLET PO SCH (08:07)
[2017-08-30] MEDS: APIXABAN 2.5 MG TABLET PO SCH ×2 (08:07→21:24)
[2017-08-30] MEDS: guaiFENesin/DM ER 600-30 MG TABLET PO SCH ×2 (08:07→21:24)
[2017-08-30 09:30] LABS: Calcium 8.7 MG/DL (8.5-10.1); Osmolality,Calculated 271.2 MOS/KG (273-304)
[2017-08-30] MEDS: INSULIN GLARGINE 100 UNIT/ML SUBCUT SCH (21:32)
[2017-08-31] MEDS: POLYMYXIN/TRIMETHOPRIM OPH SOL 10 ML BOTTLE RIGHT EYE SCH ×7 (02:22→22:15)
[2017-08-31] MEDS: VANCOMYCIN INJ 1,250 MG in SODIUM CHLORIDE 0.9% 250 ML IV SCH ×3 (04:44→22:16)
[2017-08-31 06:52] LABS: Basophils % 0.7 % (0.0-0.8); Eosinophils # 0.2 10*3/uL (0.0-0.87); Eosinophils % 4.1 % (0.00-10.9); Hematocrit 28.6 VOL% (42.0-52.0); Hemoglobin 8.7 GM/DL (14.0-18.0); Immature Granulocytes % 1.5 %; Immature Granulocytes Absolute 0.09 #; Lymphocytes # 1.5 10*3/uL (1.4-4.0); Mean Corpuscular HGB Conc 30.4 GM/DL (32-36); Mean Corpuscular Hemoglobin 21 PG (27-34); Mean Corpuscular Volume 70.4 FL (87-102); Mean Platelet Volume 9.3 FL (9.6-12.0); Monocytes # 0.6 10*3/uL (0.11-0.8); Monocytes % 10.4 % (1.7-12.7); Neutrophils # 3.4 10*3/uL (1.4-7.4); Neutrophils % 58.3 % (38.7-73.9); Platelet Count 440 T/CUMM (130-400); Red Blood Count 4.06 MC/CUMM (3.8-5.5); White Blood Count 5.8 T/CUMM (4-12)
[2017-08-31 07:30] LABS: Albumin 2.2 G/DL (3.4-5.0); Bilirubin,Total 0.4 MG/DL (0.2-1.0); Osmolality,Calculated 277.7 MOS/KG (273-304); Potassium 4.2 MMOL/L (3.5-5.1); Total Protein 8.5 G/DL (6.4-8.3)
[2017-08-31] MEDS: INSULIN REGULAR 100 UNIT/ML SUBCUT SCH ×4 (08:42→22:16)
[2017-08-31] MEDS: PANTOPRAZOLE 40 MG TABLET PO SCH (08:42)
[2017-08-31] MEDS: APIXABAN 2.5 MG TABLET PO SCH ×2 (08:42→22:15)
[2017-08-31] MEDS: guaiFENesin/DM ER 600-30 MG TABLET PO SCH ×2 (08:42→22:16)
[2017-08-31] MEDS: INSULIN GLARGINE 100 UNIT/ML SUBCUT SCH (23:15)
[2017-09-01] MEDS: POLYMYXIN/TRIMETHOPRIM OPH SOL 10 ML BOTTLE RIGHT EYE SCH ×5 (03:00→11:40)
[2017-09-01] MEDS: VANCOMYCIN INJ 1,250 MG in SODIUM CHLORIDE 0.9% 250 ML IV SCH ×3 (05:57→22:09)
[2017-09-01] MEDS: APIXABAN 2.5 MG TABLET PO SCH ×2 (09:29→22:09)
[2017-09-01] MEDS: INSULIN REGULAR 100 UNIT/ML SUBCUT SCH ×4 (09:29→22:30)
[2017-09-01] MEDS: PANTOPRAZOLE 40 MG TABLET PO SCH (09:29)
[2017-09-01] MEDS: guaiFENesin/DM ER 600-30 MG TABLET PO SCH ×2 (09:30→22:09)
[2017-09-01] MEDS: INSULIN GLARGINE 100 UNIT/ML SUBCUT SCH (22:52)
[2017-09-02] MEDS: VANCOMYCIN INJ 1,250 MG in SODIUM CHLORIDE 0.9% 250 ML IV SCH ×3 (05:46→21:05)
[2017-09-02 06:34] LABS: Basophils % 0.4 % (0.0-0.8); Eosinophils # 0.3 10*3/uL (0.0-0.87); Eosinophils % 4.5 % (0.00-10.9); Hematocrit 28.2 VOL% (42.0-52.0); Hemoglobin 8.8 GM/DL (14.0-18.0); Immature Granulocytes % 1.8 %; Lymphocytes # 1.4 10*3/uL (1.4-4.0); Lymphocytes % 25.6 % (21.2-54.2); Mean Corpuscular HGB Conc 31.2 GM/DL (32-36); Mean Corpuscular Hemoglobin 21 PG (27-34); Mean Corpuscular Volume 68.6 FL (87-102); Mean Platelet Volume 9.3 FL (9.6-12.0); Monocytes # 0.5 10*3/uL (0.11-0.8); Monocytes % 9.5 % (1.7-12.7); Neutrophils # 3.3 10*3/uL (1.4-7.4); Neutrophils % 58.2 % (38.7-73.9); Platelet Count 493 T/CUMM (130-400); Red Blood Count 4.11 MC/CUMM (3.8-5.5); Red Cell Distribution Width 15.1 % (9.3-17.3); White Blood Count 5.6 T/CUMM (4-12)
[2017-09-02 06:57] LABS: Calcium 8.9 MG/DL (8.5-10.1); Osmolality,Calculated 277.7 MOS/KG (273-304); Potassium 4.1 MMOL/L (3.5-5.1)
[2017-09-02] MEDS: INSULIN REGULAR 100 UNIT/ML SUBCUT SCH ×4 (07:58→21:05)
[2017-09-02] MEDS: guaiFENesin/DM ER 600-30 MG TABLET PO SCH ×2 (09:32→21:04)
[2017-09-02] MEDS: PANTOPRAZOLE 40 MG TABLET PO SCH (09:32)
[2017-09-02] MEDS: APIXABAN 2.5 MG TABLET PO SCH ×2 (09:32→21:04)
[2017-09-02] MEDS: INSULIN GLARGINE 100 UNIT/ML SUBCUT SCH (21:04)
[2017-09-03] MEDS: VANCOMYCIN INJ 1,250 MG in SODIUM CHLORIDE 0.9% 250 ML IV SCH ×3 (05:23→21:22)
[2017-09-03] MEDS: INSULIN REGULAR 100 UNIT/ML SUBCUT SCH ×4 (08:29→21:27)
[2017-09-03] MEDS: APIXABAN 2.5 MG TABLET PO SCH ×2 (09:14→21:26)
[2017-09-03] MEDS: guaiFENesin/DM ER 600-30 MG TABLET PO SCH ×2 (09:14→21:25)
[2017-09-03] MEDS: PANTOPRAZOLE 40 MG TABLET PO SCH (09:14)
[2017-09-03] MEDS: INSULIN GLARGINE 100 UNIT/ML SUBCUT SCH (21:27)
[2017-09-04] MEDS: VANCOMYCIN INJ 1,250 MG in SODIUM CHLORIDE 0.9% 250 ML IV SCH ×3 (05:51→21:04)
[2017-09-04] MEDS: INSULIN REGULAR 100 UNIT/ML SUBCUT SCH ×3 (09:16→17:17)
[2017-09-04] MEDS: APIXABAN 2.5 MG TABLET PO SCH ×2 (09:17→21:04)
[2017-09-04] MEDS: guaiFENesin/DM ER 600-30 MG TABLET PO SCH ×2 (09:17→21:04)
[2017-09-04] MEDS: PANTOPRAZOLE 40 MG TABLET PO SCH (09:17)
[2017-09-04] MEDS ORDERED: POLYETHYLENE GLYCOL POWDER 17 GM PACK PO PRN (10:55)
[2017-09-04] MEDS: INSULIN GLARGINE 100 UNIT/ML SUBCUT SCH (21:04)
[2017-09-05] MEDS: INSULIN REGULAR 100 UNIT/ML SUBCUT SCH ×5 (00:52→20:28)
[2017-09-05] MEDS: VANCOMYCIN INJ 1,250 MG in SODIUM CHLORIDE 0.9% 250 ML IV SCH ×3 (05:51→20:29)
[2017-09-05] MEDS: APIXABAN 2.5 MG TABLET PO SCH ×2 (08:22→20:27)
[2017-09-05] MEDS: guaiFENesin/DM ER 600-30 MG TABLET PO SCH ×2 (08:22→20:27)
[2017-09-05] MEDS: BISACODYL 5 MG TABLET PO PRN (08:22)
[2017-09-05] MEDS: PANTOPRAZOLE 40 MG TABLET PO SCH (08:22)
[2017-09-05] MEDS: INSULIN GLARGINE 100 UNIT/ML SUBCUT SCH (20:28)
[2017-09-06] MEDS: VANCOMYCIN INJ 1,250 MG in SODIUM CHLORIDE 0.9% 250 ML IV SCH ×2 (04:52→13:06)
[2017-09-06 06:21] LABS: Calcium 8.5 MG/DL (8.5-10.1); Osmolality,Calculated 277.4 MOS/KG (273-304); Potassium 4.1 MMOL/L (3.5-5.1)
[2017-09-06] MEDS: guaiFENesin/DM ER 600-30 MG TABLET PO SCH (08:29)
[2017-09-06] MEDS: APIXABAN 2.5 MG TABLET PO SCH (08:30)
[2017-09-06] MEDS: PANTOPRAZOLE 40 MG TABLET PO SCH (08:30)
[2017-09-06] MEDS: INSULIN REGULAR 100 UNIT/ML SUBCUT SCH ×2 (08:30→11:54)
[2017-09-06 12:14] VITALS: BP 134/93
== END 2017-09-06 15:33 | disposition home or self-care (01) | DRG 853 ==
LOC: SUATTDRO 15:58 → N.5E 15:58
PROVIDERS: ADMIT Internal Medicine; ATTEND Internal Medicine
PROC: BRONCHB (2017-08-14 07:50)